=== PATIENT | female | born 1985 | race African-American/Black ===

== ENCOUNTER 2018-12-20 13:06 | Emergency (ER) | payer MEDICAID ==
[~2018-12-20] VITALS: Ht 170.2 cm; Wt 90.7 kg
[2018-12-20] MEDS ORDERED: IPRATROPIUM NEB FS 0.5 MG/2.5 ML AMPUL.NEB NEB ONE (14:00)
[2018-12-20] MEDS ORDERED: ALBUTEROL FS 2.5 MG/3 ML VIAL.NEB NEB ONE (14:00)
[2018-12-20] MEDS ORDERED: IV NS 0.9% 1,000 ML BAG IV ONE (14:00)
[2018-12-20] MEDS ORDERED: methylPREDNISolone SOD SUCC 125 MG/2ML VIAL IV ONE (14:00)
--- NOTE | 2018-12-20 14:00 | NUR ---
BLOOD DRAWN AND SENT TO LAB
[2018-12-20 14:03] LABS: LYMPHOCYTES # (AUTO) 1.9 /CMM (0.8-4.8); NEUTROPHILS # (AUTO) 0.3 /CMM (1.8-8.9); WHITE BLOOD COUNT (AUTO) 3.4 K/uL (4.3-11.0)
[2018-12-20 14:06] LABS: EOSINOPHILS % (AUTO) 13.4 % (0.0-6.0); HEMATOCRIT 35 % (33-45); HEMOGLOBIN 11.5 g/dL (11.5-14.8); LYMPHOCYTES % (AUTO) 54.7 % (20.0-44.0); MEAN CORPUSCULAR HGB CONC 33 g/dl (31.0-36.0); MEAN CORPUSCULAR VOLUME 85 fL (82-100); MONOCYTES # (AUTO) 0.7 /CMM (0.1-1.30); MONOCYTES % (AUTO) 21.9 % (2.0-12.0); PLATELET COUNT (AUTO) 459 /CMM (150-450); RED BLOOD CELL COUNT(AUTO) 4.15 MIL/uL (4.0-5.2)
[2018-12-20] MEDS ORDERED: methylPREDNISolone SOD SUCC 125 MG/2ML VIAL ONE (14:06)
[2018-12-20] MEDS ORDERED: ALBUTEROL FS 2.5 MG/3 ML VIAL.NEB ONE (14:13)
[2018-12-20] MEDS ORDERED: IPRATROPIUM NEB FS 0.5 MG/2.5 ML AMPUL.NEB ONE (14:13)
--- NOTE | 2018-12-20 14:15 | NUR ---
RT AT BS FOR BREATHING TREATMENT.
[2018-12-20 14:32] LABS: ALBUMIN 3.4 g/dL (3.4-5.0); BILIRUBIN,DIRECT 0.1 mg/dL (0.0-0.2); BILIRUBIN,TOTAL 0.2 mg/dL (0.2-1.0); CALCIUM, SERUM 9.1 mg/dL (8.5-10.1); CREATININE 0.7 mg/dL (0.6-1.3); POTASSIUM 3.3 mmol/L (3.5-5.1); TOTAL PROTEIN, SERUM 7.7 g/dL (6.4-8.2)
[2018-12-20 15:06] LABS: EOSINOPHILS % (MANUAL) 7 % (0-4); LYMPHOCYTES % (MANUAL) 64 % (16-48); MONOCYTES % (MANUAL) 15 % (0-11.0); NEUTROPHILS % (MANUAL) 14 (42-76)
[2018-12-20] MEDS ORDERED: POTASSIUM CHLORIDE 20 MEQ TAB.PRT.SR PO ONE ×2 (15:30→15:40)
--- NOTE | 2018-12-20 16:20 | NUR ---
IV removed. Catheter intact and site benign. Pressure and 4x4 applied to site. No bleeding noted.Patient discharged to home in stable condition. Written and verbal after care instructions given. Patient verbalizes understanding of instruction.
[2018-12-20 16:46] VITALS: BP 125/73
== END 2018-12-20 16:25 | disposition home or self-care (01) ==
LOC: ER 13:08
DX: J20.9 Acute bronchitis, unspecified (principal); J44.0 Chronic obstructive pulmonary disease with (acute) lower respiratory infection; D70.9 Neutropenia, unspecified; E87.6 Hypokalemia; I10 Essential (primary) hypertension; E11.9 Type 2 diabetes mellitus without complications; F03.90 Unspecified dementia, unspecified severity, without behavioral disturbance, psychotic disturbance, mood disturbance, and anxiety
CPT/HCPCS: 36415; 71045; 80048; 80076; 85025; 94644; 96374; 99285; J2930

== ENCOUNTER 2020-01-09 13:41 | Emergency (ER) | payer MEDICAID ==
[~2020-01-09] VITALS: Ht 165.1 cm; Wt 93.9 kg
[2020-01-09] MEDS ORDERED: HYDROCODONE/APAP 5/325MG TABLET ONE (14:42)
[2020-01-09] MEDS ORDERED: IBUPROFEN 600 MG TABLET ONE (14:42)
[2020-01-09] MEDS: HYDROCODONE/APAP 5/325MG TABLET PO ONE (14:43)
[2020-01-09] MEDS: IBUPROFEN 600 MG TABLET PO ONE (14:44)
--- NOTE | 2020-01-09 15:56 | NUR ---
PATIENT UNABLE TO PROVIDE A URINE SAMPLE AT THIS TIME. SIGNED A WAIVER.
[2020-01-09 17:34] VITALS: BP 129/80
--- NOTE | 2020-01-09 17:34 | NUR ---
Patient discharged to home in stable condition. Written and verbal after care instructions given. Patient verbalizes understanding of instruction.
== END 2020-01-09 17:35 | disposition home or self-care (01) ==
LOC: ER 13:45
DX: M54.5 Low back pain (principal); I10 Essential (primary) hypertension; E11.9 Type 2 diabetes mellitus without complications; J44.9 Chronic obstructive pulmonary disease, unspecified; Z60.2 Problems related to living alone
CPT/HCPCS: 72131-TC